=== PATIENT | female | born 1950 | race Hispanic/Latino ===

== ENCOUNTER → 2018-10-29 | Outpatient (CLI) | payer BC ==
[~2018-10-29] MED LIST: AMLODIPINE BESYL5 MG PO; BONIVA150 MG PO; LOVENOX40 MG/0.4 SC; NORCO 7.5-3251 EACH PO
[2018-10-29 12:07] LABS: BASOPHILS % 0.4 % (0.0-1.0); EOSINOPHILS # (AUTO) 0.1 (0.0-0.4); EOSINOPHILS % 1.2 % (0.0-6.0); HEMATOCRIT 38.7 % (34.2-44.1); LYMPHOCYTES % 34.6 % (18.0-39.1); MEAN CORPUSCULAR HEMOGLOBIN 31.1 pg (28-32); MEAN CORPUSCULAR HGB CONC 33.6 g/dL (31-35); MEAN CORPUSCULAR VOLUME 92.6 fL (81-99); MONOCYTES % 11.3 % (4.4-11.3); NEUTROPHILS # (AUTO) 4.5 (2.1-6.9); NEUTROPHILS % 52.3 % (38.7-80.0); PLATELET COUNT 301 x10e3/uL (140-360); RED BLOOD COUNT 4.18 x10e6/uL (3.6-5.1)
[2018-10-29 12:43] LABS: ERYTHROCYTE SEDIMENTATION RATE 23 mm/hr (0-20)
== END ==
LOC: LAB 11:31
PROVIDERS: ATTEND Specialist
DX: M25.462 Effusion, left knee (principal); M25.461 Effusion, right knee
CPT/HCPCS: 36415; 85025; 85651; 86140